=== PATIENT | female | born 1945 | race Caucasian/White ===

== ENCOUNTER → 2018-03-03 06:30 | Outpatient (CLI) | payer MEDICARE, SELFPAY ==
--- NOTE | 2018-03-03 15:56 | STRESSREP ---
Stress Test Report Date: 03/03/2018 Procedure: Pharmacologic stress nuclear imaging study Indications: Shortness of breath/dyspnea on exertion Consent: Per the patient Procedure: The patient underwent pharmacologic (Regadenoson) evaluation with a peak heart rate of 102 beats per minute (68 predicted maximal heart rate) and a peak blood pressure of 140/90 mmHg. The baseline ECG demonstrated sinus bradycardia. The peak pharmacologic ECG demonstrated no obvious ECG changes. There were no cardiac dysrhythmias pretest, during pharmacologic infusion, or recovery. There was no complaint of chest discomfort during pharmacologic infusion or recovery. The examination was discontinued secondary to completion of protocol. Impression: 1. Pharmacologic (Regadenoson) evaluation 2. Peak pharmacologic ECG with no obvious ECG changes. 3. No cardiac dysrhythmias pretest, during pharmacologic infusion, or recovery 4. Nuclear images pending Myocardial perfusion imaging study: Technique: The patient was injected with 14 millicuries of technetium 99m Cardiolite and subsequently rest SPECT Cardiolite nuclear imaging was obtained in the horizontal long, vertical long, and short axis views. The patient underwent pharmacologic (Regadenoson) evaluation with a peak heart rate of 102 beats per minute (68 % percent predicted maximal heart rate) and a peak blood pressure of 140/90 mmHg. The patient was injected with 44 millicuries of technetium 99m Cardiolite and subsequently stress SPECT Cardiolite nuclear imaging was obtained in the horizontal long, vertical long, and short axis views. A gated Cardiolite study at peak stress was obtained. Interpretation: Rest and stress SPECT Cardiolite nuclear imaging status post realignment, normalization, and attenuation correction demonstrate relative uniform tracer uptake and myocardial perfusion appearing within normal limits. There is end systolic thickening and brightening. The gated Cardiolite study demonstrates myocardial thickening and inward wall motion. The reported LVEF is 83 %. Impression: 1. Rest and stress SPECT Cardiolite nuclear imaging demonstrate relative uniform tracer uptake and myocardial perfusion appearing within normal limits. 2. The gated Cardiolite study reports an LVEF of 83 %. This note was generated with Well[employer] software. It may contain incorrect words, spelling, and punctuation that were not noted in checking the note before signing.
== END ==
LOC: CVS 06:32
PROVIDERS: Family Provider Family Medicine; PCP Family Medicine; Visit Provider Family Medicine
DX: R06.09 Other forms of dyspnea (principal)
CPT/HCPCS: 78452; 93017; A9500; A4216; J2785

== ENCOUNTER 2021-11-22 08:59 | Day surgery (SDC) | payer MEDICARE, SELFPAY ==
--- NOTE | 2021-11-21 12:31 | EKG12_ITS ---
Test Reason : PREOP Blood Pressure : / mmHG Vent. Rate : 079 BPM Atrial Rate : 079 BPM P-R Int : 154 ms QRS Dur : 084 ms QT Int : 404 ms P-R-T Axes : 054 059 065 degrees QTc Int : 463 ms Normal sinus rhythm Normal ECG Confirmed by ROXIE MANUEL, WALLY ([id number]), editor index MIRIAN WALL ([id number]) on 11/22/2021 9:55:10 AM Referred By: Greg Reagan Confirmed By:WALLY FAUSTIN MD
--- NOTE | 2021-11-21 12:40 | RAD_ITS ---
STUDY: X-RAY CHEST REASON FOR EXAM: Female, 76 years old. Preop lumpectomy. Shortness of breath. TECHNIQUE: PA and lateral views of the chest. COMPARISON: None. FINDINGS: Lungs well expanded. There is mild interstitial coarsening. 3. Chronic. There is no focal mass or infiltrate. There is no demonstrated pleural abnormality. Normal size heart. Normal mediastinum and andrew. Normal visualized pulmonary arteries. Normal visualized aortic arch and descending thoracic aorta. There are diffuse degenerative changes of the visualized thoracic spine. There is degenerative osteoarthritis of the bilateral shoulders. There is no demonstrated abnormality of the visualized soft tissue structures of the upper abdomen. RAD/Chest PA and Lateral IMPRESSION: Degenerative changes, as described above. No demonstrated acute cardiopulmonary process. Electronically Signed: Nav White DO at 16:50 EST ,
[2021-11-21 13:36] LABS: Hemoglobin 14.2 g/dL (12.0-15.0); Mean Corpuscular Hgb 29.5 pg (27.0-32.0); Mean Corpuscular Volume 89.4 fL (81-99); Mean Platelet Vol. 10.8 fl (6.2-12.0); Platelet Count 268 K/mm3 (150-450); RBC Distribution Width CV 12.7 % (11.6-14.6); Red Blood Count 4.81 M/mm3 (4.2-5.4); White Blood Count 8.5 K/mm3 (4.4-11.0)
[2021-11-21 14:12] LABS: ALB/GLOB Ratio 1.1 RATIO (0.9-2.4); AST(SGOT) 20 U/L (15-37); Alanine Aminotransfer ALT/SGPT 25 U/L (13-56); Alkaline Phosphatase 77 U/L (45-117); Anion Gap 6 (5-15); BUN 12 mg/dL (7-18); BUN/Creat Ratio 12.5 RATIO (10-20); Calcium,Total 9.3 mg/dL (8.5-10.1); Chloride 107 mmol/L (98-107); Creatinine, Serum 0.96 mg/dL (0.55-1.02); EST Glomerular Filtration Rate 60 mL/min (>60); Est Glom Filt Rate - Afr Amer 73 mL/min (>60); Globulin 3.7 g/dL (2.2-4.2); Glucose 108 mg/dL (74-106); Potassium 3.9 mmol/L (3.5-5.1); Protein, Total 7.7 g/dL (6.4-8.2); Sodium Level 138 mmol/L (136-145)
[2021-11-22] VITALS (9 sets, daily range): BP systolic 116–145; BP diastolic 66–97; PULSE 67–77; RESP 16–77; TEMP 36.6–37.5; O2SAT 92–98; BMI 34.8
--- NOTE | 2021-11-22 | IMM_PTH ---
PATHOLOGY RESULTS PATIENT: ЮЛИЯ DE LA ROSA [place] [facility] [id number] AGE/SX: 76/F ROOM: RE11/22/[address]: Dr. Greg Reagan MD : 1945 BED: DIS: 11/22/2021 SPEC #: [id number] RECD: 11/27/21 15:02 STATUS: MARIO REAndrzej #: [id number] BREANNE: 11/22/21 00:[address]: Greg Reagan DEPT: IMMUNOHISTOCHEMISTRY RECD BY: Melinda Morse ENTERED: 11/27/21 15:03 SP TYPE: IMMUNO OTHR DR: Dr. Irving Oquendo MD Tissues: Axillary lymph node, NOS Procedures: CK7 (add) Pankeratin (initial) Pankeratin (add) PHYSICIAN & INSTITUTION [place] [id number] SPECIMEN INFORMATION: Tissue Source: A ? Right sentinel lymph nodes, biopsy Clinical Info: Breast cancer Specimen Number: [id number] CPT code: 76054, 62769 x7 METHODOLOGY: Deparaffinized sections of prefer/formalin-fixed tissue or PAP/DQ stained slides are incubated with monoclonal/polyclonal antibodies/oligonucleotide probes. Localization is made via biotin free immunoperoxidase method. Appropriate controls are performed and reacted as expected. Results on target cell population are indicated in the following table: RESULTS: ANTIBODY / CLONE RESULT Block A1 AE1-3 (AE1/AE3/PCK26) negative CK7 (OV-TL12/30) negative Block A2 AE1-3 (AE1/AE3/PCK26) negative CK7 (OV-TL12/30) negative Block A3 AE1-3 (AE1/AE3/PCK26) negative CK7 (OV-TL12/30) negative Block A4 AE1-3 (AE1/AE3/PCK26) negative CK7 (OV-TL12/30) negative These tests were developed and their performance characteristics determined by [facility]. They may not have been cleared or approved by the U.S. Food and Drug Administration. The FDA has determined that such clearance or approval is not necessary. The above immunohistochemical/dualISH markers are ordered and reviewed by the Pathologist. INTERPRETATION: A. Right sentinel lymph nodes, biopsy: Two out of two lymph nodes, negative for metastatic carcinoma. SJ:troy 11/28/2021
--- NOTE | 2021-11-22 | AXNB_PTH ---
PATHOLOGY RESULTS PATIENT: ЮЛИЯ DE LA ROSA [place] [facility] [id number] AGE/SX: 76/F ROOM: RE11/22/[address]: Dr. Greg Reagan MD : 1945 BED: DIS: 11/22/2021 SPEC #: [id number] RECD: 11/22/21 12:25 STATUS: MARIO ANALILIA #: [id number] BREANNE: 11/22/21 00:[address]: Greg Reagan DEPT: SURGICAL PATHOLOGY RECD BY: Melinda Morse ENTERED: 11/22/21 13:07 SP TYPE: AX NODE BX OTHR DR: Dr. Irving Oquendo MD Tissues: Axillary lymph node, NOS Right breast, NOS Procedures: Frozen Section (charge) Surgery Specimen Level IV Surgery Specimen Level V HEADER OPERATION: Right breast lumpectomy, sentinel node, radiotracer identification PRE-OP DIAGNOSIS: Breast cancer TISSUE SUBMITTED: A ? Right breast sentinel lymph node, FS, B ? Right breast lumpectomy, short stitch ? superior, long stitch ? lateral, single stitch - anterior FROZEN SECTION DIAGNOSIS A. Right sentinel lymph nodes, biopsy: Two out of two lymph nodes, negative for metastatic carcinoma. SJ:troy 11/22/2021 MICROSCOPIC DIAGNOSIS A. Right sentinel lymph nodes, biopsy: Two out of two lymph nodes, negative for metastatic carcinoma. B. Right breast, lumpectomy: Invasive ductal carcinoma. See cancer summary in the comment section. SJ:troy 11/27/2021 COMMENT BREAST CANCER SUMMARY Procedure - excision (lumpectomy) Specimen laterality - right Invasive tumor: Tumor site ? not specified Tumor size ? 1.5 x 1.5 x 1 cm Histologic type ? invasive ductal carcinoma, not otherwise specified. Histologic grade (Tai grade): Glandular/tubular differentiation score - 3 Nuclear pleomorphism score - 1 Mitotic count score - 1 Overall grade - grade 1 (score of 5) Tumor focality ? single focus of invasive carcinoma Ductal carcinoma in situ - present Size (extent) of DCIS ? DCIS comprise about 5% of the total tumor volume. Number of blocks with DCIS - 4 Number of blocks examined - 12 Architectural pattern ? solid and cribriform Nuclear grade - grade 2 Necrosis ? not present Lobular carcinoma in situ ? not identified Tumor extension: Skin ? not present Nipple ? not applicable Skeletal muscle ? not present Margins - Invasive and ductal carcinoma in situ are 0.5 cm away from the closest posterior margin. Regional lymph nodes: Number of lymph nodes examined - 2 Number of sentinel lymph nodes examined - 2 Number of lymph nodes with macrometastases, micrometastases or isolated tumor cells - 0 Treatment effect - no known presurgical therapy. Lymphvascular invasion ? not identified Dermal lymphvascular invasion ? not applicable Distant metastasis ? not applicable Additional Pathologic Findings ? lobular involution and changes consistent with previous biopsy site. Ancillary Studies: Previously performed on same tumor ([facility] [id number]) ER: positive (100%, strong intensity) VA: positive (100%, strong intensity) [id number]: negative (0) Microcalcifications ? present in DCIS. Clinical History - Please make reference to previous specimen ([facility] [id number]) right breast, core biopsy with diagnosis of ?invasive ductal carcinoma, provisional histologic grade 2.? PATHOLOGIC STAGE: pT1c pN0(sn) pMx The above summary is in compliance with [employer] [place] [employer] (CAP) Cancer Protocols Checklist and [place] Joint Committee on Cancer (AJCC), Staging Manual, 8th Ed. The lymph node(s) is/are negative for metastatic carcinoma on multiple H & E levels and immunohisto-chemical stains for cytokeratins ([id number]). Case has been reviewed in consultation with Dr. Ruby who concurs with the above diagnosis. IDC:AM MICROSCOPIC DESCRIPTION Slides are reviewed. GROSS DESCRIPTION A - Received fresh for frozen section diagnosis labeled with the patient's name is a specimen designated right breast sentinel lymph node. The specimen consists of a piece of adipose tissue containing nodules measuring 4 x 3 x 1.5 cm. Two nodules consistent with lymph nodes are noted each measuring 2.5 cm in greatest dimension. The lymph nodes are submitted for frozen section diagnosis in entirety as follows: 1 & 2 - one bisected lymph node, 3 & 4 - second bisected lymph node. / SJ:troy 11/23/2021 B - Received in fixative is one container labeled with the patient's name and designated right breast. The specimen consists of a piece of fibroadipose tissue (without needle localization) measuring 6.5 x 6 x 2.5 cm. The specimen is oriented as follows: short stitch - superior, long stitch - lateral, single stitch - anterior. The specimen is inked as follows: anterior - yellow, posterior - black, superior - blue, inferior - green, medial - red and lateral - orange. Serial sections reveal a smith, indurated mass measuring 1.5 x 1.5 x 1 cm. This mass is 0.3 cm away from the closest posterior margin. This information is conveyed to the surgeon intraoperatively. The central portion of the tumor also show hemorrhagic cut surfaces. Sections of the rest of the specimen reveal smith-yellow adipose cut surfaces with scant fibrous area. Cuff Matcher sections are submitted in 12 cassettes as follows: 1 - perpendicular medial, lateral and anterior margins, 2 - perpendicular superior and inferior margins, 3-6 - entire tumor with closest posterior margin, 7-12 - order entry representative sections adjacent to and away from the tumor. Sections are submitted after additional fixation. / SJ:troy 11/23/2021 TC:0 CPT: 41997, 02256, 85453 ADDENDUM ADDENDUM 01/29/2022 15:24 An order for Oncotype testing was received from Dr. Phelps. This necessitated case review, block and slide selection by pathologist at [facility]. Breast Cancer Recurrence Score = 0 Results of the complete Oncotype testing ([employer] report) are viewable in EMR under: Reports - Pathology - Lab Pathology Report, Scanned.
--- NOTE | 2021-11-22 09:19 | PCM.HP.BLA ---
History and Physical Date of Admission: 11/22/21 Intake Visit Reasons: Birads 5 R Breast Chief Complaint: Right Breast Cancer Vehicle Check In Clerk Required: No Accompanied by: Daughter Is patient in pain?: No Allergies atorvastatin [From Lipitor] Allergy (Intermediate, Verified 11/09/21 12:39) myalgia lovastatin Allergy (Intermediate, Verified 11/09/21 12:40) muscle aches oxaprozin Allergy (Intermediate, Verified 11/09/21 12:40) fatique/chest pain Medications benazepril 10 mg tablet 10 mg PO DAILY 11/09/21 [History Confirmed 11/09/21] lidocaine-prilocaine 2.5 %-2.5 % topical cream 1 applic TOPICAL ONCE 11/09/21 [History Confirmed 11/09/21] omeprazole 20 mg capsule,delayed release 20 mg PO DAILY 11/09/21 [History Confirmed 11/09/21] polyethylene glycol 3350 17 gram/dose oral powder 17 g PO DAILY PRN 11/09/21 [History Confirmed 11/09/21] [facility] Medical History (Updated 11/09/21 @ 13:[address] Greg Reagan MD) Arthritis Breast cancer Constipation GERD (gastroesophageal reflux disease) Hemorrhoids History of back problems History of colon polyps Hypertension Mitral valve disorder Mixed hyperlipidemia Obesity Rheumatoid arthritis Sliding hiatal hernia Varicose veins of both lower extremities Surgical History (Updated 11/09/21 @ 12:36 by Swapna Woodson) History of right cataract surgery Family History (Updated 11/09/21 @ 12:37 by Swapna Woodson) Sister Colon cancer Mother Diabetes CVA (cerebral vascular accident) Brother Heart disease Social History (Updated 11/09/21 @ 12:38 by Swapna Woodson) Smoking Status: Never smoker alcohol intake: never substance use type: does not use HPI HPI HPI: ЮЛИЯ DE LA ROSA, is a 76 F who presents to the office today for ongoing surgical consultation for biopsy-proven breast cancer. Patient's primary care physician is Dr. Irving Oquendo and surgeon Dr. Yaritza Alvarado. Due to unknown foreseen circumstances Dr. Yaritza Alvarado was not able to pursue definitive surgical treatment patient presents to me to continue with her care. 76-year-old female. A0. Menarche at age 11. First child was born when she was 25. She did breast-feed. She was able to palpate a upper inner right breast lump. Family history is negative for breast cancer. Medical problems include mitral valve prolapse and hypertension hiatal hernia and a sedentary lifestyle. She does not use tobacco. She has had the COVID-19 vaccination in the booster. On October 24, 2021 at the [facility] the patient had screening mammograms and then a right breast ultrasound. On October 26 and the patient underwent a ultrasound-guided needle core biopsy right breast 1 o'clock position. Based upon imaging there was a 1.8 x 1.1 x 1.9 cm suspicious density. On ultrasound no lymph nodes were identified. Pathology demonstrates invasive ductal carcinoma histologic grade 2. Estrogen receptor positive at 100%. Progesterone receptor positive at 100%. HER-2/price was 0. ROS General General: Yes breast cancer; No weight change, appetite, fatigue, colon cancer or weakness HEENT HEENT: Yes eye surgery; No difficulty swallowing, eye injury, swollen glands or hoarseness Endo Endocrine: No thyroid disease, diabetes mellitus, thyroid cancer, Hair loss, heat intolerance or cold intolerance Skin Skin: No rash or changing moles Breast Breast: Yes abnormal mammogram and abnormal US; No left breast lump, right breast lump, nipple discharge, breast pain or breast enlargement Additional Details: Right Breast Cancer [place] [facility] [place] Musculoskeletal: Yes back problems, arthritis and rheumatoid arthritis; No gout or joint pain Cardio Cardiovascular: Yes murmur and high blood pressure; No pacemaker, heart disease, atrial fibrillation, heart attack, heart stent, palpitations, shortness of breat with exertion or chest pain Additional Details: MVP Psych Psychiatric: No depression, anxiety or hearing voices Resp Respiratory: No shortness of breath, No sleep apnea, No cough, No COPD, No asthma, No emphysema and No wheezing Gastro Gastrointestinal: No abdominal pain, No nausea or vomiting, No diarrhea, Yes constipation, No blood in stool, Yes acid reflux, Yes hemorrhoids, No ulcers, No gallbladder problem and No black,tarry stools Marlon Hematologic: No blood thinners, No blood disorders, No bleeding, No anemia and No blood clots Neuro Neurologic: No system reviewed and no additional complaints, except as documented, No as per HPI, No abnormal gait, No abnormal hearing, No abnormal movements, No abnormal speech, No behavioral changes, No burning sensations, No confusion, No convulsions, No disequilibrium, No dizziness, No localized weakness, No frequent falls, No headache(s), No lack of coordination, No loss of vision, No memory loss, No numbness, No other visual disturbances, No radicular pain, No restless legs, No sensory deficit, No syncope, No tingling, No tremor(s), No weakness and No other Exam Const General: cooperative, healthy appearing, comfortable and no acute distress Nutritional Appearance: obese Orientation: alert, awake and oriented x3 HENMT Head: normal to inspection Eyes General: appearance normal, both eyes and all related structures Neck Neck: normal visual inspection Carotids: normal carotid upstroke and no bruits Chest Other: Right breast: Ecchymosis upper mid right breast small dimple from the biopsy site. Upper inner right breast easily palpable mass. Not fixated deeply not seemingly fixed to the skin. No right axillary or clavicular adenopathy Left breast: No focal mass. No nipple discharge. No axillary clavicular adenopathy Resp Effort & Inspection: normal respiratory effort Auscultation: clear to auscultation bilaterally Cardio Rate: regular rate Rhythm: regular rhythm GI Other: Soft, nontender, overweight, no hepatosplenomegaly, Musc Cervical Spine: normal cervical lordosis Skin Other: Bilateral inframammary very slight amount of redness. No ulceration or rash Neuro General: patient alert and patient awake Extrem General: no calf tenderness Psych Appearance: grossly normal Assessment and Plan Assessment and Plan (1) Breast cancer: Status: Inactive Qualifiers: Breast location: upper inner quadrant of breast Estrogen receptor status: positive Patient sex: female Laterality: right Qualified Code(s): C50.211 - Malignant neoplasm of upper-inner quadrant of right female breast; Z17.0 - Estrogen receptor positive status [ER+] Comment: Right Plan - Dr. Greg Reagan MD: I recommend to the patient a upper inner right breast lumpectomy with right axillary blue dye and nuclear tracer sentinel lymph node biopsy. In detail I discussed the technique, benefit, risk, alternatives. The patient is aware that additional lymph node dissection might be required. She is aware that additional post surgical intervention medical oncology and radiation oncology consultation would be appropriate. She has had an opportunity to ask and have questions answered. She is accompanied by her daughter today. I appreciate the opportunity of assisting with her surgical care. We will schedule and expedite her treatment. Copy: Dr. Irving Oquendo and Dr. Yaritza Reagan M.D., F.A.C.S. I have re-examined the patient. There are no clinical changes since date of exam.
--- NOTE | 2021-11-22 09:20 | EX.PCM.DISCH ---
Discharge Instructions Procedure Breast Surgery Diet Discharge Diet: No restrictions Activity Discharge Activity: May Not Drive (for 2-3 days or while taking narcotic pain meds.) May shower in (days): 1 Lifting Restrictions: 10 pounds for 1 week. Dressing / Incision Call your doctor if your incision/area has: Continuous Slow Oozing and Sudden Increased Bleeding Call your doctor if you observe: Fever of 101 or Higher Suture Line Care: Avoid Pulling/Pushing and Avoid Pinching/Bending Remove Dressing in: 1 day Additional Dressing/Incision Instructions:: Remove bulky dressing tomorrow. May leave any opsite dressing for 3-4 days. Keep dressing in place until your follow-up appointment. Follow Up Care Test Results: Test results from this visit will be discussed in further detail at your follow-up appointment, if applicable. Discharge Plan Admission Attending Provider: Greg Reagan Primary Care Provider: Irving Oquendo Discharge Orders/Prescriptions Prescriptions: No Action benazepril 10 mg tablet 10 mg PO DAILY RF: 0 lidocaine-prilocaine 2.5-2.5 % cream 1 applic topical PRN PRN (Reason: NEEDLE) RF: 0 omeprazole 20 mg capsule,delayed release(DR/EC) 20 mg PO DAILY RF: 0 polyethylene glycol 3350 [Miralax] 17 gram/dose powder 17 g PO DAILY PRN (Reason: Constipation) RF: 0 acetaminophen [Tylenol Ex Str Rapid Release] 500 mg Tablet 1,000 mg PO Q6H PRN (Reason: Pain) RF: 0
--- NOTE | 2021-11-22 09:30 | NM_ITS ---
PROCEDURE: NUCLEAR MEDICINE Injection [place] Node - RIGHT breast(s). REASON FOR EXAM: Female, 76 years old. Right breast cancer. TECHNIQUE: [place] node localization using radionuclide methods of the RIGHT breast(s) was performed following subcutaneous administration of 1.1 mCi of of sulfur colloid Tc-99m. FINDINGS: 1.1 mCi of technetium labeled sulfur colloid was injected subcutaneously in 4 equal aliquots in the superior right areolar region. NM/Lymph Node Injection Only IMPRESSION: Subcutaneous injection of 1.1 mCi of technetium labeled sulfur colloid for sentinel node imaging. Electronically Signed: Erasmo Dumont MD at 9:56 EST ,
[2021-11-22] MEDS: Lactated Ringers 1,000 ML 15 ML IV ×2 (10:35→13:53)
[2021-11-22] MEDS: Isosulfan Blue 1% 5 ML Vial (11:20)
[2021-11-22] MEDS: Lidocaine 1% (5 ml sdv) 5 ML Vial (11:50)
[2021-11-22] MEDS: Bupivacaine Mpf 0.5% 30 ML VIAL (11:50)
[2021-11-22] MEDS: Lidocaine 1% (20 ml mdv) 20 ML Vial (11:50)
--- NOTE | 2021-11-22 12:38 | BI_ITS ---
SURGICAL BREAST SPECIMEN RADIOGRAPH CLINICAL: Document presence of mass in biopsy specimen. FINDINGS: Specimen shows presence of mass. Electronically Signed: Erasmo Dumont MD at 8:06 EST , BI/Breast Biopsy Specimen
--- NOTE | 2021-11-22 12:52 | PCM.OPRPT ---
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 The patient was taken to the operating room and underwent general endotracheal intubation esthesia. There was some difficulty with laryngeal spasm. Patient was treated by anesthesia with positive pressure breath was performed. Laryngeal LMA was placed. The patient's pulse oximetry did drop significantly. The patient recovered and subsequently was intubated. She was felt to be stable to continue with the surgical plans. Dr. Cool was supervising and performing. Right arm was carefully wrapped with soft rolls in place at right angle of the table. The right breast was prepped with alcohol and then 3 cc of isosulfan blue dye was injected retroareolar area massage was performed for 5 minutes. The right breast and axilla were then sterilely prepped and draped. Previously in radiology the patient had nuclear tracer placed. An oblique incision was made in the right axilla sharp dissection carried down through the subcutaneous tissue. Blue dye tracking was immediately identified to what appeared to be a slightly enlarged lymph node. This was circumferentially dissected free and another noncontrasted lymph node was identified and this was dissected free. Hemoclips were used for hemostasis as well as electrocautery. Once the specimen was removed the neoprobe was used to assess it. In a 10-minute count and up with 81. It is of note that the blue dyed lymph node returned nuclear activity but the unknown contrasted lymph node did not have activity. Nuclear probe was placed back in the axilla and there was no additional tracer identified. Visual inspection of the axilla failed to reveal any residual blue dye lymph nodes. Palpation of the right axilla failed to demonstrate any residual palpable disease. There was no visual evidence of meaning adenopathy. A Ray-Shahla was placed. Attention was drawn to the upper inner right breast. The lesion was palpable. A transverse incision was made directly over it and then using electrocautery complete circumferential dissection was performed right down to the chest wall where a portion of the pectoralis major fascia was taken with the specimen. A short suture was placed superiorly a long suture laterally and a single suture anteriorly. The specimen was sent to radiology and him pathology. Closest margin was posteriorly at 0.3 cm. Hemostasis was obtained. 4 marking clips were placed at the site of the tumor excision. Each wound was anesthetized with 1% lidocaine mixed 50-50 with 0.5% Marcaine and throughout the procedure a total of 60 cc of that solution was used. Each wound was closed with a deep layer of interrupted 3-0 Vicryl. Skin edges approximated running subicular 4-0 Monocryl. Steri-Strips Telfa OpSite dressing bulky dry pressure dressings were applied. Specimen included the right axillary sentinel lymph nodes and the right breast lumpectomy. Drains none. Blood loss minimal. Pathology reported that 2 sentinel lymph nodes were submitted on frozen section no evidence of metastatic disease. Report was that the tumor measured 1.5 cm in diameter and the closest margin was being posteriorly at 0.3 cm. The patient was taken to the recovery area in satisfactory addition without apparent complication Greg Reagan M.D., F.A.C.S. Surgeon: Greg Reagan Type of Anesthesia: General Anesthesiologist: Vineet Plasencia
[2021-11-22] MEDS: HYDROcodone Bitartrate/Apap 5/325 Tablet PO (16:04)
== END 2021-11-22 16:38 | disposition home or self-care (01) ==
LOC: SDC 09:03 → AC 09:04
PROVIDERS: PCP Family Medicine; Referring Provider Surgery; Visit Provider Surgery
PROC: (CPT 19301; principal; 2021-11-22 11:15)
DX: C50.211 Malignant neoplasm of upper-inner quadrant of right female breast (principal); I10 Essential (primary) hypertension; E78.2 Mixed hyperlipidemia; Z17.0 Estrogen receptor positive status [ER+]; I34.1 Nonrheumatic mitral (valve) prolapse; Z80.0 Family history of malignant neoplasm of digestive organs; K44.9 Diaphragmatic hernia without obstruction or gangrene
CPT/HCPCS: 19301; 38900; 00404; 36415; 38792; 71046; 76098; 80053; 85027; 88305; 88307; 88331; 88341; 88342; 93005; A9541; J7120; J2405; Q9968

== ENCOUNTER → 2024-08-12 | Outpatient (CLI) | payer MEDICARE, SELFPAY ==
--- NOTE | 2024-08-12 09:46 | CDU_ITS ---
Reason For Study: Carotid bruit Rt. Velocities/BP Lt. Velocities/BP Prox CCA 59.8/12.6 cm/sec. Prox CCA 81.4/18.6 cm/sec. Mid CCA 70.2/14.5 cm/sec. Mid CCA 69.2/15.1 cm/sec. Dist CCA 54.1/14.5 cm/sec. Dist CCA 53.5/13.3 cm/sec. Prox ICA 79.5/17.9 cm/sec. Prox ICA 50.9/16 cm/sec. Mid ICA 61.9/17.9 cm/sec. Mid ICA 77.9/13.3 cm/sec. Dist ICA 66.3/17.9 cm/sec. Dist ICA 75.3/24.9 cm/sec. Rt. ICA/CCA = 1.13. Lt. ICA/CCA = 1.13. Prox ECA 85/10.2 cm/sec. Prox ECA 84/12.5 cm/sec. Rt. Vert. 45.6/10.7 cm/sec. Lt. Vert. 41.9/10.7 cm/sec. Right Extracranial There is intimal thickening but no significant atherosclerotic plaque noted in the right common carotid artery. There is homogeneous, smooth atherosclerotic plaque noted in the right internal carotid artery. There is intimal thickening but no significant atherosclerotic plaque noted in the right external carotid artery. Antegrade flow is noted in the right vertebral artery. Left Extracranial There is intimal thickening but no significant atherosclerotic plaque noted in the left common carotid artery. There is intimal thickening but no significant atherosclerotic plaque noted in the left internal carotid artery. There is intimal thickening but no significant atherosclerotic plaque noted in the left external carotid artery. Antegrade flow is noted in the left vertebral artery. Procedure Carotid Duplex 56506. This is a Carotid Duplex examination using B-mode, color flow and specral Doppler. Exam performed in department. VL/Carotid Duplex Ultrasound Interpretation Summary Mild (<50%) stenosis right extracranial internal carotid. Normal left extracranial internal carotid. Patent and antegrade vertebrals bilaterally. Ordering Physician: Nati Avelar Referring Physician: Irving Oquendo Performed By: Carla Alba RVT
== END | disposition home or self-care (01) ==
LOC: CVS 09:45
PROVIDERS: PCP Family Medicine; Referring Provider Internal Medicine Cardiovascular Disease; Visit Provider Internal Medicine Cardiovascular Disease
DX: R09.89 Other specified symptoms and signs involving the circulatory and respiratory systems (principal)
CPT/HCPCS: 93880

== ENCOUNTER 2024-09-01 12:22 | Outpatient (CLI) | payer MEDICARE, SELFPAY ==
--- NOTE | 2024-09-01 12:33 | CT_ITS ---
STUDY: CARDIAC CALCIUM SCORING - CT CHEST STUDY: CT CHEST WITHOUT CONTRAST REASON FOR EXAM: Female, 79 years old. HTN/SCREEN RADIATION DOSAGE (If Supplied By Facility): CTDIvol = ( 39.24 ) mGy, DLP = ( 2905.67 ) mGycm TECHNIQUE: Transaxial imaging was performed without the administration of intravenous contrast material. Cardiac over read examination. Individualized dose optimization techniques were used for this CT. COMPARISON: No relevant priors. FINDINGS: CHEST Minimal increased linear markings at the lung bases suggestive of scarring. Increased markings in the posterior aspect of the left upper lobe suggestive of scarring. There is no demonstrated pleural abnormality. There are calcifications of the coronary arteries. There are small lymph nodes within the mediastinum, which are normal in size and morphology most compatible with reactive lymph hyperplasia. Normal hilar regions. Normal unenhanced pulmonary arteries. There is atherosclerotic calcification of the aortic arch. There are degenerative changes of the thoracic spine. Small hiatal hernia. CT/Limited Chest CT Cardiac Only IMPRESSION: Coronary artery calcification. . Electronically Signed: Erasmo Dumont MD at 14:07 EST ,
[2024-09-01 12:44] VITALS: BP 146/78; PULSE 62; RESP 18; TEMP 35.9; O2SAT 97; BMI 34.9
[2024-09-01] MEDS: 0.9% Saline Lock 10 ML Syringe IV (13:10)
[2024-09-01 13:15] LABS: CREATININE FINGERSTICK 1.1 mg/dL (0.55-1.02)
[2024-09-01 13:17] VITALS: BP 142/72; PULSE 65
[2024-09-01] MEDS: Nitroglycerin SL (ED/IMG/CATH) 0.4 MG TABLET SL (13:17)
[2024-09-01 13:45] VITALS: BP 142/72; PULSE 65; RESP 18; O2SAT 91
--- NOTE | 2024-09-01 18:37 | CCTA.WCONT ---
CCTA w/Cont Coronary Arteries Date of Study:: 09/01/24 Hypertension Coronary Calcium Scoring: High-resolution Computed Tomographic imaging of the chest was performed on [09/01/2024], with particular attention paid to the coronary arteries. The patient was administered 100 cc of Isovue-370. Image resolution was good. Intravenous contrast agent was administered per protocol and images reconstructed and displayed. LEFT MAIN CORONARY ARTERY: This arises from the left coronary cusp with no significant stenosis noted. Coronary calcium score was 0. [] LEFT ANTERIOR DESCENDING CORONARY ARTERY: This arises from the left main coronary artery and there was proximal calcification noted with mild to moderate stenosis noted. The vessel continued towards the apex of the ventricle giving off a diagonal vessel. Coronary calcium score was 93.8. [] LEFT CIRCUMFLEX CORONARY ARTERY: Nondominant but medium size vessel. Gave of an obtuse marginal branch and acute marginal branch with no significant stenosis present mild atherosclerotic plaquing is noted coronary calcium score is 11.5. [] RIGHT CORONARY ARTERY: Dominant vessel arising from the right coronary cusp giving off an acute marginal and posterior descending artery. Focal proximal calcification is noted overall score of the artery however is noted to be 0. Ramus intermedius is present with no significant atherosclerotic plaquing [] THORACIC AORTA: Normal size [] PULMONARY ARTERY: [] LEFT ATRIUM/APPENDAGE: [] MITRAL VALVE: Normal [] AORTIC VALVE: Trileaflet with moderate calcification present [] LEFT VENTRICLE: Normal size [] CORONARY CALCIUM SCORE: Total Agatston score of 105 between 50th and 75th percentile [] Conclusion: Coronary CTA with mild atherosclerotic plaquing noted especially in the LAD distribution in the proximal to mid segment. No high-grade stenosis is present. Aortic valve calcification and mild to moderate stenosis is present.
== END 2024-09-01 23:59 | disposition home or self-care (01) ==
PROVIDERS: PCP Family Medicine; Referring Provider Internal Medicine Cardiovascular Disease; Visit Provider Internal Medicine Cardiovascular Disease
DX: I35.0 Nonrheumatic aortic (valve) stenosis (principal); R09.89 Other specified symptoms and signs involving the circulatory and respiratory systems; E78.5 Hyperlipidemia, unspecified; I10 Essential (primary) hypertension; I70.0 Atherosclerosis of aorta
CPT/HCPCS: 75571; 75574; 76380; Q9967

== ENCOUNTER → 2025-02-14 | Outpatient (CLI) | payer MEDICARE, SELFPAY ==
--- NOTE | 2025-02-14 12:46 | ECHOD_ITS ---
Reason For Study Reason For Study: DYSPNEA/SOB Procedure This was a 2D Doppler, Color Flow transthoracic echocardiogram. Exam performed in department. Left Ventricle Normal LV size. Mild concentric left ventricular hypertrophy. The LV systolic function is normal. EF is 65 %. Stage 1 diastolic dysfunction. Right Ventricle Normal right ventricle. Atria The left atrium is mildly enlarged. Normal right atrium. Mitral Valve Mild (1+) mitral valve insufficiency. Tricuspid Valve Trivial tricuspid valve insufficiency. Normal pulmonary artery pressure. Aortic Valve Trisinus/trileaflet aortic valve. Mild (1+) aortic valve insufficiency. Supravalvular calcified shelf with mildly increased velocity with mean peak gradient of [address] scan for further evaluation. Pulmonic Valve The pulmonic valve is not well visualized. Great Vessels Normal sized aortic root. Pericardium/Pleural No pericardial effusion. MMode/2D Measurements & Calculations LVIDd: 4.9 cm IVSd: 1.2 cm LVOT diam: 2.0 cm LVIDs: 3.0 cm LVPWd: 0.96 cm LVOT area: 3.2 cm2 RVDd: 3.6 cm FS: 40.0 % Ao root diam: 3.1 cm LAV(MOD-bp): 60.1 ml LVAd ap4: 25.0 cm2 LAV(MOD-bp) Indexed: 28.0 ml/m2 LVLd ap4: 7.2 cm LAV(MOD-sp2): 56.3 ml EDV(MOD-sp4): 73.2 ml LAV(MOD-sp4): 62.4 ml EDV(sp4-el): 74.4 ml LVAs ap4: 13.9 cm2 LVLs ap4: 6.2 cm ESV(MOD-sp4): 28.4 ml ESV(sp4-el): 26.5 ml EF(MOD-sp4): 61.1 % EF(sp4-el): 64.4 % SV(MOD-sp4): 44.7 ml SV(sp4-el): 47.9 ml LA A4 area: 21.7 cm2 SI(MOD-sp4): 20.9 ml/m2 LA dimension(2D): 3.4 cm RA A4 area: 17.7 cm2 TAPSE: 2.4 cm Time Measurements MV dec time: 0.20 sec Doppler Measurements & Calculations MV E max eric: 82.7 cm/sec Lat Peak E' Eric: 9.0 cm/sec Med Peak E' Eric: 8.2 cm/sec MV A max eric: 86.8 cm/sec E/E' lat: 9.2 E/E' med: 10.0 MV E/A: 0.95 Ao V2 max: 268.9 cm/sec LV V1 max: 101.2 cm/sec SV(LVOT): 94.3 ml Ao max P.0 mmHg LV V1 max P.1 mmHg Ao V2 mean: 200.8 cm/sec LV V1 mean P.4 mmHg Ao mean P.6 mmHg LV V1 mean: 72.6 cm/sec Ao V2 VTI: 73.0 cm LV V1 VTI: 29.1 cm AV (velocity ratio): 0.40 NOLBERTO(I,D): 1.3 cm2 NOLBERTO(V,D): 1.2 cm2 PA V2 max: 78.0 cm/sec TR max eric: 265.8 cm/sec TR max P.3 mmHg ECHO/Echo Complete Interpretation Summary Mild concentric left ventricular hypertrophy. The LV systolic function is normal. EF is 65 %. Stage 1 diastolic dysfunction. The left atrium is mildly enlarged. Mild (1+) mitral valve insufficiency. Mild (1+) aortic valve insufficiency. Supravalvular calcified shelf with mildly increased velocity with mean peak gradient of [address] scan for further evaluation. Ordering Physician: Nati Avelar Referring Physician: DENISE SMALLWOOD Performed By: Dacia Bunn RDCS
== END | disposition home or self-care (01) ==
LOC: CVS 12:46
PROVIDERS: PCP Family Medicine; Referring Provider Internal Medicine Cardiovascular Disease; Visit Provider Internal Medicine Cardiovascular Disease
DX: R06.02 Shortness of breath (principal); R06.09 Other forms of dyspnea; I25.10 Atherosclerotic heart disease of native coronary artery without angina pectoris
CPT/HCPCS: 93306

== ENCOUNTER → 2025-08-29 | Outpatient (CLI) | payer MEDICARE, SELFPAY ==
--- NOTE | 2025-08-29 12:49 | ECHOD_ITS ---
Reason For Study Reason For Study: SHORTNESS OF BREATH Procedure This was a 2D Doppler, Color Flow transthoracic echocardiogram. Myocardial strain analysis was performed in this exam to aid in the assessment of cardiac function. Exam performed in department. Left Ventricle Normal LV size. Mild concentric left ventricular hypertrophy. The global longitudinal strain = -20.7 % (normal). The left ventricular ejection fraction is 65 %. Stage 1 diastolic dysfunction. Right Ventricle Normal right ventricle. Atria The left atrium is mildly enlarged. Normal right atrium. Mitral Valve Mild (1+) mitral valve insufficiency. Tricuspid Valve Normal tricuspid valve. Unable to estimate RV systolic pressure due to inadequate jet, pulmonary artery pressure probably normal. Aortic Valve Moderately calcified aortic valve. Moderate aortic valve stenosis. Mean peak gradient 20 mmHg. Aortic valve area 1.1 cm??. Mild aortic valve regurgitation. Pulmonic Valve Mild (1+) pulmonic valve insufficiency. Great Vessels Normal sized aortic root. Pericardium/Pleural No pericardial effusion. MMode/2D Measurements & Calculations LVIDd: 5.3 cm IVSd: 1.3 cm LVOT diam: 2.0 cm LVIDs: 3.0 cm LVPWd: 0.95 cm LVOT area: 3.1 cm2 RVDd: 3.3 cm FS: 43.7 % Ao root diam: 3.4 cm LAV(MOD-bp): 58.6 ml LVAd ap4: 26.2 cm2 LAV(MOD-bp) Indexed: 27.3 ml/m2 LVLd ap4: 7.5 cm LAV(MOD-sp2): 60.7 ml EDV(MOD-sp4): 77.2 ml LAV(MOD-sp4): 54.5 ml EDV(sp4-el): 77.5 ml LVAs ap4: 12.3 cm2 LVLs ap4: 5.5 cm ESV(MOD-sp4): 23.9 ml ESV(sp4-el): 23.0 ml EF(MOD-sp4): 69.0 % EF(sp4-el): 70.2 % LVAd ap2: 25.5 cm2 SV(MOD-sp4): 53.3 ml SV(MOD-sp2): 54.8 ml LVLd ap2: 7.2 cm SI(MOD-sp4): 24.8 ml/m2 SI(MOD-sp2): 25.5 ml/m2 EDV(MOD-sp2): 77.4 ml EDV(sp2-el): 76.8 ml LVAs ap2: 11.7 cm2 LVLs ap2: 5.6 cm ESV(MOD-sp2): 22.6 ml ESV(sp2-el): 20.9 ml EF(MOD-sp2): 70.8 % SV(sp4-el): 54.4 ml LA dimension(2D): 4.3 cm LA A4 area: 19.5 cm2 RA A4 area: 16.7 cm2 TAPSE: 2.4 cm Time Measurements MV dec time: 0.23 sec Doppler Measurements & Calculations MV E max eric: 90.1 cm/sec Lat Peak E' Eric: 9.4 cm/sec Med Peak E' Eric: 6.8 cm/sec MV A max eric: 84.1 cm/sec E/E' lat: 9.6 E/E' med: 13.2 MV E/A: 1.1 Ao V2 max: 289.5 cm/sec AI max eric: 471.4 cm/sec MV dec slope: 388.0 cm/sec2 Ao max P.6 mmHg AI max P.9 mmHg Ao V2 mean: 211.3 cm/sec Ao mean P.7 mmHg AI dec slope: 249.8 cm/sec2 Ao V2 VTI: 73.9 cm AI P1/2t: 552.7 msec AV (velocity ratio): 0.36 NOLBERTO(I,D): 1.1 cm2 NOLBERTO(V,D): 1.1 cm2 LV V1 max: 99.2 cm/sec SV(LVOT): 81.1 ml PA V2 max: 75.6 cm/sec LV V1 max P.9 mmHg LV V1 mean P.2 mmHg LV V1 mean: 70.0 cm/sec LV V1 VTI: 26.4 cm ECHO/Echo Complete Interpretation Summary Mild concentric left ventricular hypertrophy. The left ventricular ejection fraction is 65 %. Stage 1 diastolic dysfunction. The left atrium is mildly enlarged. Mild (1+) mitral valve insufficiency. Moderately calcified aortic valve. Moderate aortic valve stenosis. Mean peak gr adient 20 mmHg. Aortic valve area 1.1 cm??. Mild aortic valve regurgitation. Mild (1+) pulmonic valve insufficiency. Ordering Physician: Nati Avelar Referring Physician: Irving Oquendo Performed By: Tania Crowley RDCS
== END | disposition home or self-care (01) ==
PROVIDERS: PCP Family Medicine; Referring Provider Internal Medicine Cardiovascular Disease; Visit Provider Internal Medicine Cardiovascular Disease
DX: R06.02 Shortness of breath (principal); I10 Essential (primary) hypertension; I35.0 Nonrheumatic aortic (valve) stenosis; I25.10 Atherosclerotic heart disease of native coronary artery without angina pectoris; E78.5 Hyperlipidemia, unspecified
CPT/HCPCS: 93306